=== PATIENT | female | born 1925 | race Caucasian/White ===

== ENCOUNTER 2016-03-10 09:57 | Emergency (ER) | payer MEDICARE, BC ==
--- NOTE | 2016-03-10 10:43 | ERNOTE ---
Chest Pain/Cardiac HPI Chief Complaint: Back Pain Source: patient, EMS Exam Limitations: no limitations Immunizations: IMMUNIZATION HX History of Influenza Vaccine Yes Hx Pneumococcal Vaccination Yes Allergies/Adverse Reactions: Allergies No Known Allergies Allergy (Verified 03/10/16 10:16) Home Medications: HOME MEDICATIONS Aspirin [Aspirin EC] 81 mg PO DAILY 03/01/15 [Last Taken Unknown] Tramadol HCl [Tramadol HCl ER] 50 mg PO QID PRN #30 [id number].25.75 03/10/16 [Last Taken Unknown] Narrative: pt was going to the bathroom using her walker this am. She lost her balance and struck her L ribs. She denies striking her head, denies neck pain, chest pain anteriorly, abdominal, hip or new back pain. She has chronic back pain from spinal stenosis Date (Duration): 03/10/16 Time (Timing): 05:30 Timing: constant Severity/Quality: moderate, sharp Location: left chest Chest Pain Radiation: no radiation Activities at Onset: activity Modifying Factors - Improves: Present: other - pain meds given in the ambulance Nitro Today/Relief: no nitro taken today Associated Symptoms: Present: denies symptoms Review of Systems - Review of Systems Constitutional: Present: no symptoms reported EYE: Present: no symptoms reported ENT: Present: no symptoms reported Respiratory: Present: no symptoms reported Cardiology: Present: See HPI Gastrointestinal/Abdominal: Present: no symptoms reported Genitourinary: Present: no symptoms reported Musculoskeletal: Present: no symptoms reported Skin: Present: no symptoms reported Neurological: Present: no symptoms reported Endocrine: Present: no symptoms reported Hematologic/Lymphatic: Present: no symptoms reported Psych: Present: no symptoms reported - Patient's Past Medical History Patient History - Medical: GERD Patient History - Cancer: Other Patient History - Surgical Procedures: Appendectomy, Cholecystectomy, T & A, Other - Family History Mother Family History - Medical: Father Family History - Medical: Family History - Cardiac/Respiratory: Myocardial Infarction - Social History Living Situations: home Alcohol Use: none Drug Use: none Physical Exam - Physical Exam General Appearance: Present: alert, mild distress Eye Exam: Normal inspection: bilateral Ears, Nose, Throat: Present: normal ENT inspection Neck: Present: normal inspection Respiratory: Present: no respiratory distress. Absent: chest nontender - tenderness to L mid to lower ribs laterally Cardiovascular/Chest: Present: regular rate, rhythm Gastrointestinal/Abdominal: Present: normal bowel sounds, nontender, nondistended, soft, no organomegaly. Absent: tenderness Rectal Exam: Present: deferred Back Exam: Present: normal inspection Extremity Exam: Present: normal inspection Neurological Exam: Present: alert, oriented Skin Exam: Present: normal color Lymphatic Exam: Present: no adenopathy ED Progress - Results and Orders Patient's Lab Results:: I have reviewed the patient's lab results. - Vital Signs Patient's Vital Signs:: I have reviewed the patient's vital signs. Vital Signs: Vital Signs 03/10/16 03/10/16 10:10 10:17 Temperature 36.5 C Pulse Rate 75 75 Respiratory 12 12 Rate Blood Pressure 168/57 168/57 O2 Sat by Pulse 100 100 Oximetry - X-Ray X-Ray #1 X-Ray: ribs - equivocal findings of the anterior L 6,7th ribs. Consider nondisplaced fractures. - Progress/Reassessment Chief Complaint: Back Pain Progress:: Improved Plan - Plan Plan: tramadol 50 mg po q6 hrs as needed for pain and zofran 4 mg po q8 hrs for nausea. f/u with family doctor Departure - Departure Clinical Impression: Contusion of rib on left side Qualifiers: Encounter type: initial encounter Qualified Code(s): S20.212A - Contusion of left front wall of thorax, initial encounter Disposition: Home self-care Condition: Good Instructions: Chest Contusion, [id number] Additional Instructions: f/u with PMD in 5-7 days. Take 1-2 deep breaths per hour using a pillow for mild compression/ analgesia Prescriptions: Tramadol HCl [Tramadol HCl ER] 50 mg PO QID PRN #30 [id number].25.75 PRN Reason: Analgesia
[2016-03-10 11:30] VITALS: BP 132/65
== END 2016-03-10 11:34 | disposition home or self-care (01) ==
LOC: ER 09:57
DX: S20.212A Contusion of left front wall of thorax, initial encounter (principal); W18.49XA Other slipping, tripping and stumbling without falling, initial encounter; W22.8XXA Striking against or struck by other objects, initial encounter; Y92.002 Bathroom of unspecified non-institutional (private) residence as the place of occurrence of the external cause